=== PATIENT | female | born 1970 | race Caucasian/White ===

== ENCOUNTER → 2019-01-05 | Outpatient (CLI) | payer OTHER ==
--- NOTE | 2019-01-05 15:44 | Diagnostic Imaging Report ---
INDICATION: Routine screening. COMPARISON: 12/13/2015. TECHNIQUE: 2D and 3D bilateral screening mammography was performed with CAD. FINDINGS: Both breasts are heterogeneously dense, limiting the sensitivity of mammography. The parenchymal pattern is stable. No mass or malignant appearing microcalcifications are seen. Benign calcifications are noted. The axillae are unremarkable. IMPRESSION: No mammographic features suspicious for malignancy are identified. ACR BI-RADS Category 2: Benign findings. Result letter will be mailed to the patient. Note: At least 10% of breast cancer is not imaged by mammography. Dictated by: Dictated on workstation # [id number]
== END ==
LOC: RAD 14:53
PROVIDERS: ATTEND Obstetrics & Gynecology
DX: Z12.31 Encounter for screening mammogram for malignant neoplasm of breast (principal)
CPT/HCPCS: 77067

== ENCOUNTER 2022-06-01 15:20 | Emergency (ER) | payer BC ==
[~2022-06-01] VITALS: Ht 167 cm; Wt 68.9 kg
[2022-06-01] MEDS ORDERED: ADENOSINE 6 MG/2 ML (ADENOCARD) VIAL IV ONE ×3 (15:25→16:00)
[2022-06-01] MEDS ORDERED: NS (IVPB) 100 ML ONE (15:34)
[2022-06-01] MEDS ORDERED: APRE30TA5 (15:40)
--- NOTE | 2022-06-01 15:40 | ED Cardiac General ---
History of Present Illness General Chief Complaint: Cardiac/General Problems Stated Complaint: RAPID HEARTRATE History of Present Illness Date Seen by Provider: Jun 01, 2022 Time Seen by Provider: 15:30 Initial Comments 52-year-old female presents with rapid heart rate and some mild shortness of breath. Patient reports that she just noticed her heart rate beating really fast approximately 40 minutes prior to arrival. Patient reports some chest pressure and elevated shortness of breath with it. She reports that on her watch it was reading in the 160s to 200s. Upon arrival patient is not in any distress however her heart rate is running approximate 180s to 220s. She does report that she went out drink quite a bit yesterday which she normally does not do having up to 8 beers in celebration of her birthday. She denies frequent drinking otherwise. She denies any other systemic complaints Allergies and Home Medications Allergies Coded Allergies: No Known Drug Allergies (Unverified , 06/01/22) Patient Home Medication List Home Medication List Reviewed: Yes Apremilast (Otezla) 30 Mg Tablet, (Reported) Entered as Reported by: MORIAH RAMIREZ on 06/01/22 1540 Last Action: New Order Diltiazem HCl (Cardizem Cd) 120 Mg Cap.er.24h, 120 MG PO DAILY Prescribed by: BERNY GORDON on 06/01/22 1643 Review of Systems Review of Systems Constitutional: No chills, No fever Respiratory: See HPI Cardiovascular: See HPI, Irregular Heart Rate, Palpitations Gastrointestinal: No Symptoms Reported Genitourinary: No Symptoms Reported Musculoskeletal: no symptoms reported Skin: no symptoms reported Psychiatric/Neurological: No Symptoms Reported Endocrine: No Symptoms Reported Hematologic/Lymphatic: No Symptoms Reported Past Esrmugy-Xgcbbv-Gytlte Hx Patient Social History Tobacco Use?: No Substance use?: No Alcohol Use?: Yes Alcohol type: Beer Alcohol Frequency: Daily Pt feels they are or have been: No Immunizations Up To Date First/Initial COVID19 Vaccinat: yes Second COVID19 Vaccination Stanislaw: yes 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 oz. 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 Norm as Tested Skin: Normal Color, Warm/Dry Progress/Results/Core Measures Results/Orders Lab Results Laboratory Tests Test 06/01/22 15:26 Range/Units White Blood Count 8.6 4.3-11.0 10^3/uL Red Blood Count 4.59 3.80-5.11 10^6/uL Hemoglobin 15.5 11.5-16.0 g/dL Hematocrit 45 35-52 % Mean Corpuscular Volume 97 80-99 fL Mean Corpuscular Hemoglobin 34 25-34 pg Mean Corpuscular Hemoglobin Concent 35 32-36 g/dL Red Cell Distribution Width 11.7 10.0-14.5 % Platelet Count 211 130-400 10^3/uL Mean Platelet Volume 11.9 9.0-12.2 fL Immature Granulocyte % (Auto) 0 % Neutrophils (%) (Auto) 71 42-75 % Lymphocytes (%) (Auto) 23 12-44 % Monocytes (%) (Auto) 5 0-12 % Eosinophils (%) (Auto) 0 0-10 % Basophils (%) (Auto) 0 0-10 % Neutrophils # (Auto) 6.2 1.8-7.8 X 10^3 Lymphocytes # (Auto) 2.0 1.0-4.0 X 10^3 Monocytes # (Auto) 0.4 0.0-1.0 X 10^3 Eosinophils # (Auto) 0.0 0.0-0.3 10^3/uL Basophils # (Auto) 0.0 0.0-0.1 10^3/uL Immature Granulocyte # (Auto) 0.0 0.0-0.1 10^3/uL Sodium Level 139 135-145 MMOL/L Potassium Level 3.5 L 3.6-5.0 MMOL/L Chloride Level 99 98-107 MMOL/L Carbon Dioxide Level 22 21-32 MMOL/L Anion Gap 18 H 5-14 MMOL/L Blood Urea Nitrogen 9 7-18 MG/DL Creatinine 0.91 0.60-1.30 MG/DL Estimat Glomerular Filtration Rate 77 BUN/Creatinine Ratio 10 Glucose Level 129 H 70-105 MG/DL Calcium Level 10.3 H 8.5-10.1 MG/DL Corrected Calcium 8.5-10.1 MG/DL Magnesium Level 1.8 1.6-2.4 MG/DL Total Bilirubin 0.7 0.1-1.0 MG/DL Aspartate Amino Transf (AST/SGOT) 31 5-34 U/L Alanine Aminotransferase (ALT/SGPT) 20 0-55 U/L Alkaline Phosphatase 181 H 40-136 U/L Troponin I < 0.028 <0.028 NG/ML Total Protein 9.0 H 6.4-8.2 GM/DL Albumin 4.8 H 3.2-4.5 GM/DL My Orders Orders - GORDON,BERNY L DO Adenosine Injection (Adenocard Injection (06/01/22 15:25) Diltiazem Injection (Cardizem Injection) (06/01/22 15:30) Diltiazem Iv For Drip (Cardizem Iv For D (06/01/22 15:34) Ns (Ivpb) (Sodium Chloride 0.9% Ivpb Bag (06/01/22 15:34) Cbc With Automated Diff (06/01/22 15:40) Comprehensive Metabolic Panel (06/01/22 15:40) Magnesium (06/01/22 15:40) Troponin I [place] (06/01/22 15:40) Diltiazem Drip Pre-Mix (Cardizem Drip Pr (06/01/22 15:45) Diltiazem Injection (Cardizem Injection) (06/01/22 16:00) Adenosine Injection (Adenocard Injection (06/01/22 16:00) Adenosine Injection (Adenocard Injection (06/01/22 16:00) Ns Iv 1000 Ml (Sodium Chloride 0.9%) (06/01/22 15:57) Diltiazem Cd 24 Hr Capsule (Cardizem Cd (06/01/22 16:45) Ekg Tracing (06/01/22 17:49) Ekg Tracing (06/01/22 17:49) Ekg Tracing (06/01/22 16:00) Medications Given in ED Vital Signs/I&O 06/01/22 06/01/22 06/01/22 06/01/22 15:30 15:33 15:40 17:49 Temp 36.4 Pulse 162 200 154 103 Resp 20 16 B/P (MAP) 120/80 114/99 (104) 111/97 114/92 Pulse Ox 100 98 Progress Progress Note : Progress Note Patient's rhythm converted following her Cardizem drip. She remained mildly sinus tachycardia around 100. We were able to stop the drip and started on Cardizem p.o. She remained in sinus rhythm. Patient is a [employer] employee and would prefer to follow-up outpatient with [employer] cardiology instead of being admitted at this time. Patient is low risk and at this time does need to be started on anticoagulation. She will follow-up with [facility] cardiology tomorrow. I did prescribe her extended release Cardizem. Patient reports joint lives a couple minutes from the hospital and if her symptoms return she will just come back to the ER. Patient's heart rate had gotten as high as 240s with A-fib RVR but is now normal sinus at discharge at approximately 100. She is symptom-free. After shared decision making and going over the risk and benefits patient was discharged home. Patient's labs were reviewed by me. She did have a negative troponin. With no other significant acute abnormalities. Initial ECG Impression Date: Jun 01, 2022 Initial ECG Impression Time: 15:23 Initial ECG Rate: 180 Initial ECG Rhythm: A Fib/Flutter Initial ECG Impression: Atrial Fibrillation w/RVR EKG #1: EKG Time: 15:35 Rhythm: A Fib/Flutter ECG Impression: Atrial Fibrillation EKG #2: EKG Time: 15:52 Rate: 104 Rhythm: S.Tach ECG Comparisson: Changed Comment afib resolved. Departure Impression Primary Impression: Paroxysmal atrial fibrillation with RVR Disposition: 01 HOME, SELF-CARE Condition: Stable Departure-Patient Inst. Referrals: NO,LOCAL PHYSICIAN (PCP/Family) Primary Care Physician Patient Instructions: Atrial Fibrillation Add. Discharge Instructions: Please call card reader in the morning to arrange for an outpatient follow-up. Return to the ER with any concerns All discharge instructions reviewed with patient and/or family. Voiced understanding. Scripts Diltiazem HCl (Cardizem Cd) 120 Mg Cap.er.24h 120 MG PO DAILY, #20 CAP Prov: BERNY GORDON DO 06/01/22 BERNY GORDON DO Jun 01, 2022 15:40
[2022-06-01] MEDS ORDERED: dilTIAZem DRIP PRE-MIX 125 ML IV SCH (15:45)
[2022-06-01] MEDS ORDERED: NS IV 1000 ML 1,000 ML IV STA (15:57)
[2022-06-01 15:59] LABS: ALBUMIN 4.8 GM/DL (3.2-4.5); CHLORIDE 99 MMOL/L (98-107); POTASSIUM 3.5 MMOL/L (3.6-5.0); SODIUM 139 MMOL/L (135-145)
[2022-06-01 16:00] LABS: BASOPHILS % (AUTO) 0 % (0-10); CALCIUM 10.3 MG/DL (8.5-10.1); EOSINOPHILS % (AUTO) 0 % (0-10); HEMATOCRIT 45 % (35-52); HEMOGLOBIN 15.5 g/dL (11.5-16.0); LYMPHOCYTES % (AUTO) 23 % (12-44); MEAN CORPUSCULAR HEMOGLOBIN 34 pg (25-34); MEAN CORPUSCULAR HGB CONC 35 g/dL (32-36); MEAN CORPUSCULAR VOLUME 97 fL (80-99); MEAN PLATELET VOLUME 11.9 fL (9.0-12.2); MONOCYTES # (AUTO) 0.4 X 10^3 (0.0-1.0); MONOCYTES % (AUTO) 5 % (0-12); NEUTROPHILS # (AUTO) 6.2 X 10^3 (1.8-7.8); NEUTROPHILS % (AUTO) 71 % (42-75); PLATELET COUNT 211 10^3/uL (130-400); WHITE BLOOD COUNT 8.6 10^3/uL (4.3-11.0)
[2022-06-01 16:01] LABS: GLUCOSE 129 MG/DL (70-105)
[2022-06-01 16:02] LABS: CARBON DIOXIDE 22 MMOL/L (21-32)
[2022-06-01 16:03] LABS: BILIRUBIN,TOTAL 0.7 MG/DL (0.1-1.0)
[2022-06-01 16:05] LABS: ALKALINE PHOSPHATASE 181 U/L (40-136); CREATININE SERUM 0.91 MG/DL (0.60-1.30); GFR ESTIMATED 77
[2022-06-01 16:06] LABS: BUN/CREATININE RATIO 10
[2022-06-01 16:08] LABS: ALANINE AMINOTRANSFERASE 20 U/L (0-55); MAGNESIUM 1.8 MG/DL (1.6-2.4)
[2022-06-01] MEDS ORDERED: DILT120C82 PO (16:43)
[2022-06-01] MEDS ORDERED: dilTIAZem120 MG (CARDIZEM CD) CAP PO ONE (16:45)
[2022-06-01 17:49] VITALS: BP 114/92
== END 2022-06-01 17:49 | disposition home or self-care (01) ==
LOC: EDUNIT# 15:20 → ER 15:22
DX: I48.0 Paroxysmal atrial fibrillation (principal)
CPT/HCPCS: 36415; 80053; 83735; 84484; 85025; 93005